=== PATIENT | female | born 1975 | race Hispanic/Latino ===

== ENCOUNTER 2024-05-07 12:17 | Observation (INO) | payer OTHER ==
[~2024-05-07] VITALS: Ht 157.5 cm; Wt 68.5 kg
[~2024-05-07 12:17] MED LIST: BACLOFEN5 MG/5 ML PO; METHOCARBAMOL500 MG PO; ONDANSETRON ODT4 MG PO; PREDNISOLO15 MG/5 M1 PO; PREDNISONE20 MG PO; VENTOLIN HFA18 GM INH; XOFLUZA80 MG PO
[2024-05-07 13:31] LABS: BASOPHILS % 0.3 % (0.0-1.0); EOSINOPHILS % 0.3 % (0.0-6.0); HEMATOCRIT 26.3 % (34.2-44.1); LYMPHOCYTES # (AUTO) 0.9 (1.0-3.2); LYMPHOCYTES % 26.6 % (18.0-39.1); MEAN CORPUSCULAR HGB CONC 23.2 g/dL (31-35); MEAN CORPUSCULAR VOLUME 64.5 fL (81-99); MONOCYTES # (AUTO) 0.2 (0.2-0.8); MONOCYTES % 6.4 % (4.4-11.3); NEUTROPHILS # (AUTO) 2.3 (2.1-6.9); NEUTROPHILS % 65.8 % (38.7-80.0); PLATELET COUNT 192 x10e3/uL (140-360); RED BLOOD COUNT 4.08 x10e6/uL (3.6-5.1); RED CELL DISTRIBUTION WIDTH 20.6 % (11.7-14.4); WHITE BLOOD COUNT 3.46 x10e3/uL (4.8-10.8)
[2024-05-07 13:47] LABS: HEMOGLOBIN 6.1 g/dL (12.0-16.0)
[2024-05-07 13:48] LABS: ALBUMIN/GLOBULIN RATIO 1.2 (0.8-2.0); ALKALINE PHOSPHATASE 99 IU/L (40-150); ANION GAP 12.8 mmol/L (8-16); BILIRUBIN,TOTAL 0.6 mg/dL (0.2-1.2); BLOOD UREA NITROGEN 9 mg/dL (7-26); BUN/CREATININE RATIO 13 (6-25); CALCIUM 8.6 mg/dL (8.4-10.2); CARBON DIOXIDE 23 mmol/L (22-29); CHLORIDE 107 mmol/L (98-107); CREATININE, SERUM 0.69 mg/dL (0.57-1.11); EST GLOMERULAR FILTRATION RATE 108 ML/MIN (>=60); GLUCOSE 87 mg/dL (74-118); POTASSIUM 3.8 mmol/L (3.5-5.1); SODIUM 139 mmol/L (136-145); TOTAL PROTEIN 7.4 g/dL (6.5-8.1)
[2024-05-07 13:49] LABS: ALANINE AMINOTRANSFERASE < 6 IU/L (0-55)
[2024-05-07] MEDS ORDERED: ONDANSETRON HCL INJ 2MG/ML 2ML 2 MG/ML VIAL IV PRN (14:45)
[2024-05-07] MEDS ORDERED: SODIUM CHLORIDE FLUSH 10 ML SYR INJ PRN (14:45)
[2024-05-07] MEDS ORDERED: SODIUM CHLORIDE 0.9% 250ML 250 ML ONE (20:31)
[2024-05-07] MEDS: SODIUM CHLORIDE 0.9% 250ML 250 ML IV ONE (21:00)
[2024-05-07 21:10] VITALS: PULSE 68; RESP 12
[2024-05-07 21:18] VITALS: BP 143/94; PULSE 76; RESP 20; TEMP 98.3; O2SAT 100
[2024-05-07 22:42] VITALS: BP 143/94; PULSE 76; RESP 20; TEMP 98.3; O2SAT 100
[2024-05-07 23:04] VITALS: BP 143/94; PULSE 76; RESP 20; TEMP 98.3; O2SAT 100
[2024-05-07] MEDS ORDERED: GUAIFENESIN/DEXTROMETHORPHAN LIQD 5 ML UDC PO PRN (23:30)
[2024-05-07] MEDS ORDERED: ACETAMINOPHEN 325 MG TAB PO PRN (23:30)
[2024-05-07] MEDS ORDERED: HYDRALAZINE HCL 20 MG/ML VIAL IV PRN (23:30)
[2024-05-07] MEDS ORDERED: DOCUSATE SODIUM 100 MG CAP PO PRN (23:30)
[2024-05-08] VITALS (15 sets, daily range): BP systolic 130–155; BP diastolic 72–94; PULSE 60–76; RESP 12–20; TEMP 97.8–98.4; O2SAT 98–100
[2024-05-08] MEDS: SODIUM CHLORIDE 0.9% 250ML 250 ML ONE (01:00)
[2024-05-08] MEDS ORDERED: MULTIVITAMINS/MINERALS TAB PO SCH (09:00)
== END 2024-05-08 05:25 | disposition home or self-care (01) ==
LOC: ER 12:26 → ERHOLD 14:46 → MED/SURG3 21:57
PROVIDERS: ADMIT Internal Medicine Critical Care Medicine; ATTEND Internal Medicine Critical Care Medicine
DX: D62 Acute posthemorrhagic anemia (principal); N93.8 Other specified abnormal uterine and vaginal bleeding; D25.9 Leiomyoma of uterus, unspecified; Z98.84 Bariatric surgery status
CPT/HCPCS: 36415; 36430; 80053; 84702; 85025; 86850; 86900; 86920; 99284; G0378; J7050; P9016

== ENCOUNTER 2024-06-10 10:44 | Emergency (ER) | payer OTHER ==
[~2024-06-10] VITALS: Ht 157.5 cm; Wt 68.5 kg
[2024-06-10 11:11] VITALS: PULSE 69; RESP 18; TEMP 98; O2SAT 100
[2024-06-10 12:02] LABS: BASOPHILS % 0.8 % (0.0-1.0); EOSINOPHILS % 0.4 % (0.0-6.0); HEMATOCRIT 35.3 % (34.2-44.1); HEMOGLOBIN 9.3 g/dL (12.0-16.0); LYMPHOCYTES # (AUTO) 1.4 (1.0-3.2); LYMPHOCYTES % 28.2 % (18.0-39.1); MEAN CORPUSCULAR HEMOGLOBIN 18.5 pg (28-32); MEAN CORPUSCULAR HGB CONC 26.3 g/dL (31-35); MONOCYTES # (AUTO) 0.3 (0.2-0.8); MONOCYTES % 5.7 % (4.4-11.3); NEUTROPHILS # (AUTO) 3.2 (2.1-6.9); NEUTROPHILS % 64.5 % (38.7-80.0); PLATELET COUNT 189 x10e3/uL (140-360); RED BLOOD COUNT 5.04 x10e6/uL (3.6-5.1); RED CELL DISTRIBUTION WIDTH 24.7 % (11.7-14.4); WHITE BLOOD COUNT 4.89 x10e3/uL (4.8-10.8)
[2024-06-10] MEDS ORDERED: IOPAMIDOL 370 MG/ML 100 ML INFUS..BTL INJ ONE (12:26)
[2024-06-10 12:27] LABS: ALBUMIN 3.9 g/dL (3.5-5.0); ALBUMIN/GLOBULIN RATIO 1.1 (0.8-2.0); ANION GAP 14.5 mmol/L (8-16); BILIRUBIN,TOTAL 0.4 mg/dL (0.2-1.2); CALCIUM 8.8 mg/dL (8.4-10.2); CREATININE, SERUM 0.71 mg/dL (0.57-1.11); POTASSIUM 3.5 mmol/L (3.5-5.1); TOTAL PROTEIN 7.3 g/dL (6.5-8.1)
[2024-06-10 12:32] LABS: TROPONIN I 0.002 ng/mL (0-0.300)
[2024-06-10] MEDS: KETOROLAC TROMETHAMINE 30 MG/ML VIAL IV STA (12:55)
[2024-06-10] MEDS: DICYCLOMINE HCL 20 MG/2 ML VIAL IM ONE (12:55)
[2024-06-10 13:40] LABS: BACTERIA,URINE FEW /HPF; BILIRUBIN,URINE NEGATIVE (NEGATIVE); CLARITY,URINE CLOUDY (CLEAR); COLOR,URINE YELLOW (YELLOW); EPITHELIAL CELLS,URINE FEW /LPF; GLUCOSE, URINE NEGATIVE (NEGATIVE); KETONES,URINE NEGATIVE (NEGATIVE); LEUKOCYTE ESTERASE ,URINE NEGATIVE (NEGATIVE); NITRITE,URINE NEGATIVE (NEGATIVE); PH,URINE 7 (5 - 7); PROTEIN,URINE DIPSTICK 2+ (NEGATIVE); RBC,URINE >50 /HPF (0-5); WBC,URINE (MAN) 0-5 /HPF (0-5)
[2024-06-10] MEDS ORDERED: DICYCLOMINE HCL20 MG PO (13:56)
[2024-06-10 14:44] LABS: PLATELET ESTIMATE ADEQUATE
[2024-06-10 14:45] LABS: ANISOCYTOSIS SLIGHT; PLATELET MORPHOLOGY COMMENT FEW LARGE; RBC MORPHOLOGY COMMENT NORMAL
== END 2024-06-10 15:13 | disposition home or self-care (01) ==
LOC: ER 10:50
DX: N93.8 Other specified abnormal uterine and vaginal bleeding (principal); R10.32 Left lower quadrant pain; D64.9 Anemia, unspecified; D25.9 Leiomyoma of uterus, unspecified; K76.0 Fatty (change of) liver, not elsewhere classified; Z98.84 Bariatric surgery status
CPT/HCPCS: 36415; 71045; 74177; 80053; 81001; 84484; 84702; 85025; 93005; 99284; J1885; Q9967